=== PATIENT | female | born 1960 | race Caucasian/White ===

== ENCOUNTER 2018-07-25 13:17 | Emergency (ER) | payer OTHER | END 2018-07-25 14:51 | disposition home or self-care (01) | LOC: FTE 13:17 | DX: J20.9 Acute bronchitis, unspecified (principal); I10 Essential (primary) hypertension; E11.9 Type 2 diabetes mellitus without complications; Z79.84 Long term (current) use of oral hypoglycemic drugs | CPT/HCPCS: 99283; Z7502 ==

== ENCOUNTER 2018-10-07 03:20 | Inpatient (IN) | payer OTHER ==
[2018-10-07] MEDS: FUROSEMIDE 40 MG INJ IV ×3 (03:55→18:00)
[2018-10-07] MEDS: ASPIRIN 81 MG TAB PO (03:55)
[2018-10-07 03:56] LABS: ADD MAN DIFF? NO
[2018-10-07] MEDS: NITROGLYCERIN 2% 1 GM OINT PKT TD (03:56)
[2018-10-07 04:05] LABS: WHITE BLOOD COUNT 6.3 10^3/ul (4.8-10.8)
[2018-10-07 04:05] LABS: BASOPHILS % 0.6 % (0.0-2.0); EOSINOPHILS # 0.1 10^3/ul (0.0-0.5); EOSINOPHILS % 1.3 % (0.0-7.0); HEMATOCRIT 38.5 % (37.0-47.0); HEMOGLOBIN 12.2 g/dl (12.0-16.0); LYMPHOCYTES # 1.9 10^3/ul (0.8-2.9); LYMPHOCYTES % 30.6 % (15.0-51.0); MEAN CORPUSCULAR HEMOGLOBIN 27.6 pg (29.0-33.0); MEAN CORPUSCULAR HGB CONC 31.7 g/dl (32.0-37.0); MEAN CORPUSCULAR VOLUME 87.1 fl (82.0-101.0); MEAN PLATELET VOLUME 10.9 fl (7.4-10.4); MONOCYTE # 0.5 10^3/ul (0.3-0.9); MONOCYTES % 7.4 % (0.0-11.0); NEUTROPHIL # 3.8 10^3/ul (1.6-7.5); NEUTROPHILS % 59.8 % (39.0-77.0); PLATELET COUNT 192 10^3/UL (140-415); RED BLOOD COUNT 4.42 10^6/ul (4.20-5.40); RED CELL DISTRIBUTION WIDTH 14.2 % (11.5-14.5)
[2018-10-07 04:32] LABS: ANION GAP 7 (5-13); BLOOD UREA NITROGEN 14 mg/dl (7-20); CALCIUM 9.6 mg/dl (8.4-10.2); CARBON DIOXIDE 26 mmol/L (21-31); CHLORIDE 109 mmol/L (97-110); CREATININE 0.62 mg/dl (0.44-1.00); Estimated GFR > 60 mL/min (>60); GLUCOSE 138 mg/dl (70-220); POTASSIUM 3.9 mmol/L (3.5-5.1); SODIUM 142 mmol/L (135-144)
[2018-10-07 04:42] LABS: B-TYPE NATRIURETIC PEPTIDE 6610 PG/ML (0-125)
[2018-10-07 04:44] LABS: TROPONIN-I < 0.012 ng/ml (0.000-0.120)
[2018-10-07] MEDS ORDERED: morphine 2 MG INJ IV (06:00)
[2018-10-07] MEDS ORDERED: NACL 0.9% 3 ML SYG IV (06:00)
[2018-10-07] MEDS ORDERED: ACETAMINOPHEN 325 MG TAB PO (06:00)
[2018-10-07] MEDS ORDERED: NITROGLYCERIN (SL) 0.4 MG TAB SL (06:00)
[2018-10-07] MEDS ORDERED: ONDANSETRON 4 MG INJ IV ×2 (06:00)
[2018-10-07] MEDS: ENALAPRIL 20 MG TAB PO (08:49)
[2018-10-07] MEDS: ACETAMINOPHEN 325 MG TAB PO (08:55)
[2018-10-07 10:12] LABS: HEMOGLOBIN A1C 7.2 % (0-5.9); MAGNESIUM 1.7 mg/dl (1.7-2.5)
[2018-10-07 10:14] LABS: CREATINE KINASE 71 IU/L (23-200)
[2018-10-07 10:17] LABS: CHOLESTEROL 107 mg/dl (100-200)
[2018-10-07 10:17] LABS: CHOL/HDL RATIO 2.3 RATIO; HDL CHOLESTEROL 45 mg/dl (35-98); LDL CHOLESTEROL,CALCULATED 44 mg/dl; TRIGLYCERIDES 89 mg/dl (0-149)
[2018-10-07 10:26] LABS: CK INDEX 1.8; CK-MB 1.31 ng/ml (0.0-2.4); TROPONIN-I < 0.012 ng/ml (0.000-0.120)
[2018-10-07] MEDS: POTASSIUM CHLORIDE 20 MEQ POWDER FOR ORAL SOLN PO (10:54)
[2018-10-07] MEDS ORDERED: GLUCAGON 1 MG INJ IM (11:00)
[2018-10-07] MEDS ORDERED: GLUCOSE GEL 15 GRAM TUBE PO ×2 (11:00)
[2018-10-07] MEDS ORDERED: DEXTROSE 50% 50 ML SYRINGE IV ×2 (11:00)
[2018-10-07] MEDS ORDERED: GLUCOSE GEL 15 GRAM TUBE BUCCAL (11:00)
[2018-10-07] MEDS: MAGNESIUM SULFATE 3 GM in DEXTROSE 5% 100 ML IVPB (11:51)
[2018-10-07] MEDS: ENOXAPARIN 40 MG/0.4 ML SYG SC (11:55)
[2018-10-07] MEDS: INSULIN ASPART [NOVOLOG] 3 ML PEN SC ×5 (12:24→20:39)
[2018-10-07 15:30] LABS: CREATINE KINASE 70 IU/L (23-200)
[2018-10-07 15:50] LABS: CK INDEX 1.7; CK-MB 1.21 ng/ml (0.0-2.4); TROPONIN-I < 0.012 ng/ml (0.000-0.120)
[2018-10-07] MEDS: ATORVASTATIN 40 MG TAB PO (20:39)
[2018-10-07] MEDS ORDERED: ATORVASTATIN 20 MG TAB PO (21:00)
[2018-10-07] MEDS ORDERED: SODIUM POLYSTYRENE 15 GM KIT (POWDER + SORBITOL) PO (22:30)
[2018-10-08 00:03] LABS: ANION GAP 7 (5-13); BLOOD UREA NITROGEN 17 mg/dl (7-20); CALCIUM 9.6 mg/dl (8.4-10.2); CARBON DIOXIDE 31 mmol/L (21-31); CHLORIDE 103 mmol/L (97-110); CREATININE 0.71 mg/dl (0.44-1.00); Estimated GFR > 60 mL/min (>60); GLUCOSE 170 mg/dl (70-220); MAGNESIUM 2.3 mg/dl (1.7-2.5); SODIUM 141 mmol/L (135-144)
[2018-10-08] MEDS: ACETAMINOPHEN 325 MG TAB PO (00:47)
[2018-10-08] MEDS: ACCUCHECK AT 2AM (Patients on SS coverage) XX (02:00)
[2018-10-08 05:26] LABS: ADD MAN DIFF? NO; BASOPHILS % 0.6 % (0.0-2.0); EOSINOPHILS # 0.1 10^3/ul (0.0-0.5); EOSINOPHILS % 1.5 % (0.0-7.0); HEMATOCRIT 37.2 % (37.0-47.0); HEMOGLOBIN 11.7 g/dl (12.0-16.0); LYMPHOCYTES # 1.9 10^3/ul (0.8-2.9); LYMPHOCYTES % 36.5 % (15.0-51.0); MEAN CORPUSCULAR HEMOGLOBIN 27.6 pg (29.0-33.0); MEAN CORPUSCULAR HGB CONC 31.5 g/dl (32.0-37.0); MEAN CORPUSCULAR VOLUME 87.7 fl (82.0-101.0); MEAN PLATELET VOLUME 10.8 fl (7.4-10.4); MONOCYTE # 0.4 10^3/ul (0.3-0.9); MONOCYTES % 8.4 % (0.0-11.0); NEUTROPHIL # 2.8 10^3/ul (1.6-7.5); NEUTROPHILS % 52.8 % (39.0-77.0); PLATELET COUNT 183 10^3/UL (140-415); RED BLOOD COUNT 4.24 10^6/ul (4.20-5.40); RED CELL DISTRIBUTION WIDTH 14.1 % (11.5-14.5)
[2018-10-08 05:26] LABS: WHITE BLOOD COUNT 5.2 10^3/ul (4.8-10.8)
[2018-10-08 06:04] LABS: PHOSPHORUS 4.7 mg/dl (2.5-4.9)
[2018-10-08 06:04] LABS: MAGNESIUM 2.1 mg/dl (1.7-2.5)
[2018-10-08] MEDS: FUROSEMIDE 40 MG INJ IV ×2 (06:10→17:27)
[2018-10-08 06:13] LABS: ANION GAP 8 (5-13); BLOOD UREA NITROGEN 16 mg/dl (7-20); CALCIUM 9.7 mg/dl (8.4-10.2); CARBON DIOXIDE 30 mmol/L (21-31); CHLORIDE 103 mmol/L (97-110); CREATININE 0.69 mg/dl (0.44-1.00); Estimated GFR > 60 mL/min (>60); GLUCOSE 168 mg/dl (70-220); POTASSIUM 4.5 mmol/L (3.5-5.1); SODIUM 141 mmol/L (135-144)
[2018-10-08 06:18] LABS: B-TYPE NATRIURETIC PEPTIDE 4400 PG/ML (0-125)
[2018-10-08] MEDS: INSULIN ASPART [NOVOLOG] 3 ML PEN SC ×7 (08:16→20:36)
[2018-10-08] MEDS: ASPIRIN 81 MG TAB PO (08:57)
[2018-10-08] MEDS: ENALAPRIL 20 MG TAB PO (08:57)
[2018-10-08] MEDS: ENOXAPARIN 40 MG/0.4 ML SYG SC (09:05)
[2018-10-08] MEDS: ATORVASTATIN 40 MG TAB PO (20:35)
[2018-10-08] MEDS: INSULIN GLARGINE [LANTus] (100 UNITS/ML) SYG SC (20:43)
[2018-10-09] MEDS: ACETAMINOPHEN 325 MG TAB PO (00:48)
[2018-10-09] MEDS: ACCUCHECK AT 2AM (Patients on SS coverage) XX (02:00)
[2018-10-09 05:54] LABS: ADD MAN DIFF? NO
[2018-10-09 06:03] LABS: WHITE BLOOD COUNT 6.6 10^3/ul (4.8-10.8)
[2018-10-09 06:03] LABS: BASOPHILS % 0.3 % (0.0-2.0); EOSINOPHILS # 0.1 10^3/ul (0.0-0.5); EOSINOPHILS % 1.5 % (0.0-7.0); HEMATOCRIT 39.6 % (37.0-47.0); HEMOGLOBIN 12.3 g/dl (12.0-16.0); LYMPHOCYTES # 2.5 10^3/ul (0.8-2.9); LYMPHOCYTES % 38.1 % (15.0-51.0); MEAN CORPUSCULAR HEMOGLOBIN 27.2 pg (29.0-33.0); MEAN CORPUSCULAR HGB CONC 31.1 g/dl (32.0-37.0); MEAN CORPUSCULAR VOLUME 87.6 fl (82.0-101.0); MEAN PLATELET VOLUME 10.9 fl (7.4-10.4); MONOCYTE # 0.5 10^3/ul (0.3-0.9); MONOCYTES % 7.5 % (0.0-11.0); NEUTROPHIL # 3.5 10^3/ul (1.6-7.5); NEUTROPHILS % 52.1 % (39.0-77.0); PLATELET COUNT 200 10^3/UL (140-415); RED BLOOD COUNT 4.52 10^6/ul (4.20-5.40); RED CELL DISTRIBUTION WIDTH 14.1 % (11.5-14.5)
[2018-10-09] MEDS: FUROSEMIDE 40 MG INJ IV (06:16)
[2018-10-09 06:27] LABS: ANION GAP 10 (5-13); BLOOD UREA NITROGEN 20 mg/dl (7-20); CALCIUM 9.7 mg/dl (8.4-10.2); CARBON DIOXIDE 30 mmol/L (21-31); CHLORIDE 103 mmol/L (97-110); CREATININE 0.72 mg/dl (0.44-1.00); Estimated GFR > 60 mL/min (>60); GLUCOSE 160 mg/dl (70-220); POTASSIUM 4.2 mmol/L (3.5-5.1); SODIUM 143 mmol/L (135-144)
[2018-10-09 06:40] LABS: PHOSPHORUS 4.7 mg/dl (2.5-4.9)
[2018-10-09 06:40] LABS: MAGNESIUM 2.1 mg/dl (1.7-2.5)
[2018-10-09] MEDS: INSULIN ASPART [NOVOLOG] 3 ML PEN SC ×7 (07:57→20:59)
[2018-10-09] MEDS: ASPIRIN 81 MG TAB PO (08:59)
[2018-10-09] MEDS: ENALAPRIL 20 MG TAB PO (09:00)
[2018-10-09] MEDS: ENOXAPARIN 40 MG/0.4 ML SYG SC (09:06)
[2018-10-09] MEDS: FUROSEMIDE 20 MG INJ IV (17:19)
[2018-10-09] MEDS: ATORVASTATIN 40 MG TAB PO (20:58)
[2018-10-09] MEDS: INSULIN GLARGINE [LANTus] (100 UNITS/ML) SYG SC (21:30)
[2018-10-10] MEDS: ACCUCHECK AT 2AM (Patients on SS coverage) XX (02:00)
[2018-10-10 05:38] LABS: ADD MAN DIFF? NO
[2018-10-10] MEDS: FUROSEMIDE 20 MG INJ IV (05:41)
[2018-10-10 05:53] LABS: BASOPHILS % 0.5 % (0.0-2.0); EOSINOPHILS # 0.1 10^3/ul (0.0-0.5); EOSINOPHILS % 1.6 % (0.0-7.0); HEMATOCRIT 39.3 % (37.0-47.0); HEMOGLOBIN 12.2 g/dl (12.0-16.0); LYMPHOCYTES % 32.1 % (15.0-51.0); MEAN CORPUSCULAR HEMOGLOBIN 27.5 pg (29.0-33.0); MEAN CORPUSCULAR VOLUME 88.7 fl (82.0-101.0); MEAN PLATELET VOLUME 11.2 fl (7.4-10.4); MONOCYTE # 0.6 10^3/ul (0.3-0.9); MONOCYTES % 9.2 % (0.0-11.0); NEUTROPHIL # 3.5 10^3/ul (1.6-7.5); NEUTROPHILS % 56.3 % (39.0-77.0); PLATELET COUNT 212 10^3/UL (140-415); RED BLOOD COUNT 4.43 10^6/ul (4.20-5.40); RED CELL DISTRIBUTION WIDTH 13.9 % (11.5-14.5)
[2018-10-10 05:53] LABS: WHITE BLOOD COUNT 6.2 10^3/ul (4.8-10.8)
[2018-10-10 06:13] LABS: PHOSPHORUS 3.9 mg/dl (2.5-4.9)
[2018-10-10 06:24] LABS: ANION GAP 10 (5-13); BLOOD UREA NITROGEN 21 mg/dl (7-20); CALCIUM 9.6 mg/dl (8.4-10.2); CARBON DIOXIDE 30 mmol/L (21-31); CHLORIDE 101 mmol/L (97-110); CREATININE 0.69 mg/dl (0.44-1.00); Estimated GFR > 60 mL/min (>60); GLUCOSE 172 mg/dl (70-220); POTASSIUM 4.5 mmol/L (3.5-5.1); SODIUM 141 mmol/L (135-144)
[2018-10-10] MEDS: INSULIN ASPART [NOVOLOG] 3 ML PEN SC ×7 (07:51→21:34)
[2018-10-10] MEDS: ASPIRIN 81 MG TAB PO (08:58)
[2018-10-10] MEDS: ENALAPRIL 20 MG TAB PO (08:58)
[2018-10-10] MEDS: ENOXAPARIN 40 MG/0.4 ML SYG SC (09:53)
[2018-10-10] MEDS: ATORVASTATIN 40 MG TAB PO (21:24)
[2018-10-10] MEDS: INSULIN GLARGINE [LANTus] (100 UNITS/ML) SYG SC (21:34)
[2018-10-11] MEDS: ACCUCHECK AT 2AM (Patients on SS coverage) XX (02:00)
[2018-10-11 05:21] LABS: ADD MAN DIFF? NO
[2018-10-11 05:30] LABS: WHITE BLOOD COUNT 5.8 10^3/ul (4.8-10.8)
[2018-10-11 05:30] LABS: BASOPHILS % 0.5 % (0.0-2.0); EOSINOPHILS # 0.1 10^3/ul (0.0-0.5); EOSINOPHILS % 1.7 % (0.0-7.0); HEMATOCRIT 39.2 % (37.0-47.0); LYMPHOCYTES # 2.1 10^3/ul (0.8-2.9); LYMPHOCYTES % 36.1 % (15.0-51.0); MEAN CORPUSCULAR HEMOGLOBIN 27.2 pg (29.0-33.0); MEAN CORPUSCULAR HGB CONC 30.6 g/dl (32.0-37.0); MEAN CORPUSCULAR VOLUME 88.9 fl (82.0-101.0); MONOCYTE # 0.6 10^3/ul (0.3-0.9); NEUTROPHILS % 51.5 % (39.0-77.0); PLATELET COUNT 200 10^3/UL (140-415); RED BLOOD COUNT 4.41 10^6/ul (4.20-5.40); RED CELL DISTRIBUTION WIDTH 13.9 % (11.5-14.5)
[2018-10-11 05:39] LABS: PHOSPHORUS 3.7 mg/dl (2.5-4.9)
[2018-10-11 05:46] LABS: ANION GAP 10 (5-13); BLOOD UREA NITROGEN 22 mg/dl (7-20); CALCIUM 9.5 mg/dl (8.4-10.2); CARBON DIOXIDE 30 mmol/L (21-31); CHLORIDE 101 mmol/L (97-110); CREATININE 0.66 mg/dl (0.44-1.00); Estimated GFR > 60 mL/min (>60); GLUCOSE 185 mg/dl (70-220); POTASSIUM 4.4 mmol/L (3.5-5.1); SODIUM 141 mmol/L (135-144)
[2018-10-11] MEDS: INSULIN ASPART [NOVOLOG] 3 ML PEN SC ×7 (08:05→20:20)
[2018-10-11] MEDS: FUROSEMIDE 40 MG TAB PO (08:36)
[2018-10-11] MEDS: ASPIRIN 81 MG TAB PO (08:37)
[2018-10-11] MEDS: ENALAPRIL 20 MG TAB PO (08:37)
[2018-10-11] MEDS: ENOXAPARIN 40 MG/0.4 ML SYG SC (08:48)
[2018-10-11] MEDS ORDERED: FENTAnyl 50 MCG/ML VIAL (14:37)
[2018-10-11] MEDS ORDERED: MIDAZOLAM 1 MG/ML 2 ML INJ (14:37)
[2018-10-11] MEDS ORDERED: HEPARIN 1000 UNITS/ML 10 ML INJ (14:37)
[2018-10-11] MEDS ORDERED: NITROGLYCERIN (IC) 100 MCG/ML INJ (14:38)
[2018-10-11] MEDS ORDERED: VERAPAMIL 5 MG INJ (14:38)
[2018-10-11] MEDS: INSULIN GLARGINE [LANTus] (100 UNITS/ML) SYG SC (20:18)
[2018-10-12] MEDS: ACETAMINOPHEN 325 MG TAB PO (01:21)
[2018-10-12] MEDS: ACCUCHECK AT 2AM (Patients on SS coverage) XX (02:00)
[2018-10-12 06:41] LABS: ADD MAN DIFF? NO
[2018-10-12 06:46] LABS: BASOPHILS % 0.7 % (0.0-2.0); EOSINOPHILS # 0.1 10^3/ul (0.0-0.5); HEMOGLOBIN 11.4 g/dl (12.0-16.0); LYMPHOCYTES # 2.4 10^3/ul (0.8-2.9); LYMPHOCYTES % 38.7 % (15.0-51.0); MEAN CORPUSCULAR HEMOGLOBIN 27.5 pg (29.0-33.0); MEAN CORPUSCULAR HGB CONC 31.7 g/dl (32.0-37.0); MEAN CORPUSCULAR VOLUME 86.7 fl (82.0-101.0); MEAN PLATELET VOLUME 11.2 fl (7.4-10.4); MONOCYTE # 0.6 10^3/ul (0.3-0.9); MONOCYTES % 10.5 % (0.0-11.0); NEUTROPHILS % 48.9 % (39.0-77.0); PLATELET COUNT 192 10^3/UL (140-415); RED BLOOD COUNT 4.15 10^6/ul (4.20-5.40); RED CELL DISTRIBUTION WIDTH 14.3 % (11.5-14.5)
[2018-10-12 06:46] LABS: WHITE BLOOD COUNT 6.1 10^3/ul (4.8-10.8)
[2018-10-12 07:15] LABS: PHOSPHORUS 4.3 mg/dl (2.5-4.9)
[2018-10-12 07:21] LABS: ALANINE AMINOTRANSFERASE 25 IU/L (13-69); ALBUMIN 3.7 g/dl (3.3-4.9); ALBUMIN/GLOBULIN RATIO 1.19; ALKALINE PHOSPHATASE 83 IU/L (42-121); ANION GAP 10 (5-13); ASPARTATE AMINO TRANSFERASE 24 IU/L (15-46); BILIRUBIN,INDIRECT 0.4 mg/dl (0-1.1); BILIRUBIN,TOTAL 0.4 mg/dl (0.2-1.3); BLOOD UREA NITROGEN 20 mg/dl (7-20); CALCIUM 9.3 mg/dl (8.4-10.2); CARBON DIOXIDE 26 mmol/L (21-31); CHLORIDE 105 mmol/L (97-110); CREATININE 0.59 mg/dl (0.44-1.00); Estimated GFR > 60 mL/min (>60); GLUCOSE 164 mg/dl (70-220); POTASSIUM 4.2 mmol/L (3.5-5.1); SODIUM 141 mmol/L (135-144); TOTAL PROTEIN 6.8 g/dl (6.1-8.1)
[2018-10-12] MEDS: INSULIN ASPART [NOVOLOG] 3 ML PEN SC ×6 (07:35→17:17)
[2018-10-12] MEDS: FUROSEMIDE 40 MG TAB PO (08:34)
[2018-10-12] MEDS: APIXABAN 5 MG TABLET PO (08:34)
[2018-10-12] MEDS: SPIRONOLACTONE 25 MG TAB PO (08:35)
[2018-10-12] MEDS: ENALAPRIL 20 MG TAB PO (11:05)
[2018-10-13] MEDS ORDERED: LISINOPRIL 10 MG TAB PO (09:00)
== END 2018-10-12 19:11 | disposition home or self-care (01) | DRG 287 ==
LOC: TEL 10-11 17:12 → E/R 03:20 → 6WM 05:45
PROC: 4A023N7 Measurement of Cardiac Sampling and Pressure, Left Heart, Percutaneous Approach (ICD-10-PCS; principal; 2018-10-11 14:37)
PROC: B211YZZ Fluoroscopy of Multiple Coronary Arteries using Other Contrast (ICD-10-PCS; 2018-10-11 14:37)
PROC: B215YZZ Fluoroscopy of Left Heart using Other Contrast (ICD-10-PCS; 2018-10-11 14:37)
DX: I11.0 Hypertensive heart disease with heart failure (principal); I50.23 Acute on chronic systolic (congestive) heart failure; E11.9 Type 2 diabetes mellitus without complications; I27.22 Pulmonary hypertension due to left heart disease; I48.0 Paroxysmal atrial fibrillation; I42.0 Dilated cardiomyopathy; R07.9 Chest pain, unspecified; E78.5 Hyperlipidemia, unspecified; E88.81 Metabolic syndrome and other insulin resistance; E66.9 Obesity, unspecified; I27.20 Pulmonary hypertension, unspecified; Z68.30 Body mass index [BMI] 30.0-30.9, adult
CPT/HCPCS: 36415; 71045; 80048; 80053; 80061; 82550; 82553; 82962; 83036; 83735; 83880; 84100; 84443; 84484; 85025; 93005; 93306; 93458; 96374; 99285-25; G0378

== ENCOUNTER 2018-11-20 14:28 | Emergency (ER) | payer OTHER ==
[2018-11-20 16:16] LABS: HEMATOCRIT 40.3 % (37.0-47.0); HEMOGLOBIN 12.9 g/dl (12.0-16.0); MEAN CORPUSCULAR HEMOGLOBIN 27.3 pg (29.0-33.0); MEAN CORPUSCULAR VOLUME 85.4 fl (82.0-101.0); MEAN PLATELET VOLUME 11.4 fl (7.4-10.4); PLATELET COUNT 212 10^3/UL (140-415); RED BLOOD COUNT 4.72 10^6/ul (4.20-5.40); RED CELL DISTRIBUTION WIDTH 14.8 % (11.5-14.5)
[2018-11-20 16:16] LABS: WHITE BLOOD COUNT 8.9 10^3/ul (4.8-10.8)
[2018-11-20 16:19] LABS: POSITIVE DIFF @See below
[2018-11-20 16:20] LABS: ADD MAN DIFF? YES
[2018-11-20] MEDS: CEFTRIAXONE 1 GM/50 ML (PMX) 50 ML IVPB (16:21)
[2018-11-20 16:27] LABS: ANION GAP 11 (5-13); BLOOD UREA NITROGEN 17 mg/dl (7-20); CALCIUM 9.6 mg/dl (8.4-10.2); CARBON DIOXIDE 24 mmol/L (21-31); CHLORIDE 104 mmol/L (97-110); CREATININE 0.67 mg/dl (0.44-1.00); Estimated GFR > 60 mL/min (>60); GLUCOSE 116 mg/dl (70-220); POTASSIUM 5.2 mmol/L (3.5-5.1); SODIUM 139 mmol/L (135-144)
[2018-11-20 16:38] LABS: TROPONIN-I 0.013 ng/ml (0.000-0.120)
[2018-11-20 16:43] LABS: ANISOCYTOSIS 3+ (0-0); BAND NEUTROPHILS #M 0.5 10^3/ul (0.0-0.6); BAND NEUTROPHILS % (M) 6 % (0-4); EOSINOPHILS % (M) 1 % (0-7); LYMPHOCYTES #M 1.3 10^3/ul (0.8-2.9); LYMPHOCYTES % (M) 15 % (15-51); MICROCYTOSIS 3+ (0-0); MONOCYTE #M 0.6 10^3/ul (0.3-0.9); MONOCYTES % (M) 7 % (0-11); PLATELET ESTIMATE NORMAL; POIKILOCYTOSIS 1+ (0-0); SEG NEUT #M 6.4 10^3/ul (1.6-7.5); SEGMENTED NEUTROPHILS (M) % 71 % (39-77)
[2018-11-20] MEDS: FUROSEMIDE 40 MG INJ IV (17:35)
== END 2018-11-20 18:48 | disposition home or self-care (01) ==
LOC: E/R 14:28
DX: J20.9 Acute bronchitis, unspecified (principal); E11.9 Type 2 diabetes mellitus without complications; Z79.01 Long term (current) use of anticoagulants; Z79.84 Long term (current) use of oral hypoglycemic drugs
CPT/HCPCS: 36415; 71045; 80048; 81025; 84484; 85025; 87040-91; 87400; 96374; 96375; 99284-25

== ENCOUNTER 2018-11-23 14:02 | Emergency (ER) | payer OTHER | END 2018-11-23 15:53 | disposition home or self-care (01) | LOC: FTE 14:02 | DX: L01.00 Impetigo, unspecified (principal); I10 Essential (primary) hypertension; E11.9 Type 2 diabetes mellitus without complications; Z79.82 Long term (current) use of aspirin; Z79.84 Long term (current) use of oral hypoglycemic drugs | CPT/HCPCS: 99283; Z7502 ==

== ENCOUNTER 2018-12-18 11:00 | Emergency (ER) | payer OTHER ==
[2018-12-18] MEDS: ACETAMINOPHEN 500 MG TAB PO (11:37)
== END 2018-12-18 12:23 | disposition home or self-care (01) ==
LOC: FTE 12:23
DX: J40 Bronchitis, not specified as acute or chronic (principal)
CPT/HCPCS: 71045; 99283-25

== ENCOUNTER 2019-01-09 14:01 | Emergency (ER) | payer OTHER ==
[2019-01-09] MEDS: HYDROCODONE/APAP (5/325) TAB PO (15:57)
== END 2019-01-09 18:15 | disposition home or self-care (01) ==
LOC: FTE 14:01
DX: S22.31XA Fracture of one rib, right side, initial encounter for closed fracture (principal); I10 Essential (primary) hypertension; E11.9 Type 2 diabetes mellitus without complications; W18.39XA Other fall on same level, initial encounter; Y92.9 Unspecified place or not applicable; Z79.84 Long term (current) use of oral hypoglycemic drugs
CPT/HCPCS: 71250; 99284-25

== ENCOUNTER 2019-01-11 04:19 | Emergency (ER) | payer OTHER | END 2019-01-11 07:24 | disposition home or self-care (01) | LOC: FTE 04:19 | DX: R68.2 Dry mouth, unspecified (principal); R07.81 Pleurodynia; E11.9 Type 2 diabetes mellitus without complications; J45.909 Unspecified asthma, uncomplicated; Z79.84 Long term (current) use of oral hypoglycemic drugs | CPT/HCPCS: 82962; 93005; 99283-25 ==

== ENCOUNTER 2019-03-29 20:33 | Inpatient (IN) | payer OTHER ==
[2019-03-29] MEDS: NITROGLYCERIN (SL) 0.4 MG TAB SL (21:32)
[2019-03-29] MEDS: FUROSEMIDE 40 MG INJ IV (21:33)
[2019-03-29] MEDS: ASPIRIN 81 MG TAB PO (21:33)
[2019-03-29 21:34] LABS: ADD MAN DIFF? NO
[2019-03-29 21:37] LABS: BASOPHILS % 0.5 % (0.0-2.0); EOSINOPHILS # 0.1 10^3/ul (0.0-0.5); EOSINOPHILS % 1.6 % (0.0-7.0); HEMATOCRIT 36.5 % (37.0-47.0); HEMOGLOBIN 11.7 g/dl (12.0-16.0); LYMPHOCYTES # 1.4 10^3/ul (0.8-2.9); LYMPHOCYTES % 22.5 % (15.0-51.0); MEAN CORPUSCULAR HEMOGLOBIN 29.3 pg (29.0-33.0); MEAN CORPUSCULAR HGB CONC 32.1 g/dl (32.0-37.0); MEAN CORPUSCULAR VOLUME 91.3 fl (82.0-101.0); MEAN PLATELET VOLUME 10.6 fl (7.4-10.4); MONOCYTE # 0.4 10^3/ul (0.3-0.9); MONOCYTES % 6.9 % (0.0-11.0); NEUTROPHIL # 4.2 10^3/ul (1.6-7.5); NEUTROPHILS % 68.2 % (39.0-77.0); PLATELET COUNT 208 10^3/UL (140-415); RED CELL DISTRIBUTION WIDTH 13.6 % (11.5-14.5)
[2019-03-29 21:37] LABS: WHITE BLOOD COUNT 6.1 10^3/ul (4.8-10.8)
[2019-03-29 21:54] LABS: ALANINE AMINOTRANSFERASE 30 IU/L (13-69); ALBUMIN/GLOBULIN RATIO 1.11; ALKALINE PHOSPHATASE 126 IU/L (42-121); ANION GAP 9 (5-13); ASPARTATE AMINO TRANSFERASE 40 IU/L (15-46); BLOOD UREA NITROGEN 13 mg/dl (7-20); CALCIUM 9.4 mg/dl (8.4-10.2); CARBON DIOXIDE 23 mmol/L (21-31); CHLORIDE 102 mmol/L (97-110); CREATININE 0.67 mg/dl (0.44-1.00); Estimated GFR > 60 mL/min (>60); LIPASE 28 U/L (23-300); SODIUM 134 mmol/L (135-144); TOTAL PROTEIN 7.6 g/dl (6.1-8.1)
[2019-03-29 22:06] LABS: B-TYPE NATRIURETIC PEPTIDE 8090 PG/ML (0-125)
[2019-03-29 22:10] LABS: GLUCOSE 426 mg/dl (70-220)
[2019-03-29 22:20] LABS: POTASSIUM 4.6 mmol/L (3.5-5.1)
[2019-03-29] MEDS: ENALAPRILAT 1.25 MG INJ IV (22:28)
[2019-03-30] MEDS ORDERED: ACETAMINOPHEN 325 MG TAB PO (06:00)
[2019-03-30] MEDS ORDERED: ALBUTEROL/IPRATROPIUM (NEB) 3 ML AMP HHN (06:00)
[2019-03-30] MEDS ORDERED: NITROGLYCERIN (SL) 0.4 MG TAB SL (06:00)
[2019-03-30] MEDS ORDERED: NACL 0.9% 3 ML SYG IV (06:00)
[2019-03-30] MEDS ORDERED: ONDANSETRON 4 MG INJ IV (06:00)
[2019-03-30 06:47] LABS: ADD MAN DIFF? NO
[2019-03-30] MEDS: ENOXAPARIN 100 MG/ML SYG SC (06:52)
[2019-03-30 07:01] LABS: WHITE BLOOD COUNT 6.1 10^3/ul (4.8-10.8)
[2019-03-30 07:01] LABS: BASOPHILS % 0.3 % (0.0-2.0); EOSINOPHILS # 0.1 10^3/ul (0.0-0.5); EOSINOPHILS % 2.3 % (0.0-7.0); HEMATOCRIT 34.8 % (37.0-47.0); HEMOGLOBIN 10.9 g/dl (12.0-16.0); LYMPHOCYTES # 1.6 10^3/ul (0.8-2.9); LYMPHOCYTES % 25.5 % (15.0-51.0); MEAN CORPUSCULAR HEMOGLOBIN 28.9 pg (29.0-33.0); MEAN CORPUSCULAR HGB CONC 31.3 g/dl (32.0-37.0); MEAN CORPUSCULAR VOLUME 92.3 fl (82.0-101.0); MONOCYTE # 0.6 10^3/ul (0.3-0.9); NEUTROPHIL # 3.8 10^3/ul (1.6-7.5); NEUTROPHILS % 62.7 % (39.0-77.0); PLATELET COUNT 192 10^3/UL (140-415); RED BLOOD COUNT 3.77 10^6/ul (4.20-5.40); RED CELL DISTRIBUTION WIDTH 13.5 % (11.5-14.5)
[2019-03-30 07:10] LABS: CREATINE KINASE 130 IU/L (23-200)
[2019-03-30 07:19] LABS: ALANINE AMINOTRANSFERASE 35 IU/L (13-69); ALBUMIN 3.7 g/dl (3.3-4.9); ALBUMIN/GLOBULIN RATIO 1.19; ALKALINE PHOSPHATASE 107 IU/L (42-121); ANION GAP 8 (5-13); ASPARTATE AMINO TRANSFERASE 33 IU/L (15-46); BILIRUBIN,INDIRECT 1.1 mg/dl (0-1.1); BILIRUBIN,TOTAL 1.1 mg/dl (0.2-1.3); BLOOD UREA NITROGEN 12 mg/dl (7-20); CALCIUM 9.5 mg/dl (8.4-10.2); CARBON DIOXIDE 30 mmol/L (21-31); CHLORIDE 100 mmol/L (97-110); CREATININE 0.74 mg/dl (0.44-1.00); Estimated GFR > 60 mL/min (>60); GLUCOSE 324 mg/dl (70-220); MAGNESIUM 1.7 mg/dl (1.7-2.5); SODIUM 138 mmol/L (135-144); TOTAL PROTEIN 6.8 g/dl (6.1-8.1)
[2019-03-30 07:22] LABS: CK INDEX 2.5; CK-MB 3.19 ng/ml (0.0-2.4)
[2019-03-30] MEDS: INSULIN ASPART [NOVOLOG] 3 ML PEN SC ×4 (07:58→20:12)
[2019-03-30] MEDS: INSULIN GLARGINE [LANTus] (100 UNITS/ML) SYG SC (07:58)
[2019-03-30] MEDS: ALBUTEROL HFA 8 GM INHALER INH ×4 (09:16→21:00)
[2019-03-30] MEDS: MULTIVITAMINS THERAPEUTIC TAB PO (09:16)
[2019-03-30] MEDS: FUROSEMIDE 40 MG TAB PO (09:17)
[2019-03-30 11:55] LABS: CREATINE KINASE 128 IU/L (23-200)
[2019-03-30] MEDS ORDERED: INSULIN GLARGINE [LANTus] (100 UNITS/ML) SYG SC (12:00)
[2019-03-30] MEDS ORDERED: HEPARIN 1000 UNITS/ML 10 ML INJ IV (12:00)
[2019-03-30 12:08] LABS: CK INDEX 2.8; CK-MB 3.53 ng/ml (0.0-2.4)
[2019-03-30] MEDS: IOHEXOL 100 ML (13:25)
[2019-03-30] MEDS: SOD CHLORIDE 0.9% 100 ML (13:25)
[2019-03-30] MEDS: HEPARIN 1000 UNITS/ML 10 ML INJ IV (13:52)
[2019-03-30] MEDS: HEPARIN 25000 UNITS/250 ML 250 ML IV (13:55)
[2019-03-30 14:08] LABS: ADD MAN DIFF? NO
[2019-03-30 14:11] LABS: BASOPHILS % 0.4 % (0.0-2.0); EOSINOPHILS # 0.1 10^3/ul (0.0-0.5); EOSINOPHILS % 2.3 % (0.0-7.0); LYMPHOCYTES # 1.4 10^3/ul (0.8-2.9); LYMPHOCYTES % 29.9 % (15.0-51.0); MEAN CORPUSCULAR HEMOGLOBIN 28.8 pg (29.0-33.0); MEAN CORPUSCULAR HGB CONC 31.4 g/dl (32.0-37.0); MEAN CORPUSCULAR VOLUME 91.6 fl (82.0-101.0); MEAN PLATELET VOLUME 10.5 fl (7.4-10.4); MONOCYTE # 0.4 10^3/ul (0.3-0.9); MONOCYTES % 7.9 % (0.0-11.0); NEUTROPHIL # 2.9 10^3/ul (1.6-7.5); NEUTROPHILS % 59.3 % (39.0-77.0); PLATELET COUNT 192 10^3/UL (140-415); RED BLOOD COUNT 3.82 10^6/ul (4.20-5.40); RED CELL DISTRIBUTION WIDTH 13.7 % (11.5-14.5)
[2019-03-30 14:11] LABS: WHITE BLOOD COUNT 4.8 10^3/ul (4.8-10.8)
[2019-03-30 14:34] LABS: INR 1.22; PROTIME 15.5 Sec (11.9-14.9); PT RATIO 1.2
[2019-03-30 14:35] LABS: PARTIAL THROMBOPLASTIN TIME 40.5 Sec (23.0-35.0)
[2019-03-30] MEDS: ASPIRIN (EC) 81 MG TAB PO (17:59)
[2019-03-30] MEDS: FUROSEMIDE 40 MG INJ IV (18:06)
[2019-03-30] MEDS: ATORVASTATIN 40 MG TAB PO (20:03)
[2019-03-30 20:39] LABS: PARTIAL THROMBOPLASTIN TIME 125.2 Sec (23.0-35.0)
[2019-03-31] MEDS ORDERED: ACCU-CHEK XX (02:00)
[2019-03-31] MEDS ORDERED: INSULIN GLARGINE [LANTus] (100 UNITS/ML) SYG SC ×2 (08:00)
== END 2019-03-31 00:05 | disposition short-term general hospital (02) | DRG 280 ==
LOC: 6WM 22:31 → E/R 20:33
DX: I21.4 Non-ST elevation (NSTEMI) myocardial infarction (principal); I50.33 Acute on chronic diastolic (congestive) heart failure; I42.0 Dilated cardiomyopathy; I11.0 Hypertensive heart disease with heart failure; E11.65 Type 2 diabetes mellitus with hyperglycemia; J45.909 Unspecified asthma, uncomplicated; Z79.4 Long term (current) use of insulin; Z91.14 Patient's other noncompliance with medication regimen; I48.0 Paroxysmal atrial fibrillation
CPT/HCPCS: 36415; 71045; 71275; 80053; 82550; 82553; 82962; 83690; 83735; 83880; 84484; 85025; 85610; 85730; 93005; 94660; 96374; 96375; 99285-25